=== PATIENT | male | born 1975 | race Two or more races ===

== ENCOUNTER 2020-09-12 04:57 | Emergency (ER) | payer OTHER, SELFPAY ==
--- NOTE | ~2020-09-12 | XR_ITS ---
EXAMINATION: XR SHOULDER, LEFT CLINICAL INFORMATION: Rule out dislocation COMPARISON: None TECHNIQUE: Three views of the left shoulder. FINDINGS: Left shoulder dislocation. Anterior positioning of the humeral head in relation to the glenoid. Associated Hill-Sachs deformity of the humeral head. The acromioclavicular joint is intact with mild hypertrophic degenerative change. The visualized lung is clear. XR/XR shoulder LT min 2V IMPRESSION: Anterior left shoulder dislocation.
--- NOTE | ~2020-09-12 | XR_ITS ---
EXAMINATION: XR SHOULDER, LEFT CLINICAL INFORMATION: Glenohumeral dislocation. Check placement of shoulder. COMPARISON: Prior radiographs from 09/12/2020 TECHNIQUE: Single AP view of left shoulder FINDINGS: This AP view includes the majority of the humerus in the [id number]. The humerus is internally rotated, and there appears to be Hill-Sachs deformity. The humeral head is well-positioned over the glenoid. The previously observed glenohumeral dislocation has been reduced. Alignment is normal at the acromioclavicular joint. The scapula is intact. XR/XR shoulder LT 1V IMPRESSION: There has been successful reduction of previously observed anteroinferior glenohumeral dislocation.
[2020-09-12 05:54] VITALS: PULSE 103; RESP 14; TEMP 37.2; O2SAT 95; BMI 29.5
[2020-09-12 06:00] VITALS: BP 133/89; PULSE 104; RESP 15; O2SAT 100
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
--- NOTE | 2020-09-12 06:46 | PC.NURSE ---
patient prepared for shoulder relocation. respiratory at bedside as well as MD and MD at bedside . Procedure was successful and xray to [facility] shoulder is in place
[2020-09-12] MEDS: Ketamine HCl 500 MG/5 ML VIAL 362.872 MG IM (06:57)
[2020-09-12 07:00] VITALS: BP 175/103; PULSE 130; RESP 21; O2SAT 99
[2020-09-12 07:54] VITALS: BP 140/92; PULSE 107; RESP 17; O2SAT 98
--- NOTE | 2020-09-12 07:56 | PC.NURSE ---
when asked if he is experiencing pain, pt states he doesnt feel anything in his left arm but denies pain in left arm. md hayward
== END 2020-09-12 09:05 | disposition home or self-care (01) ==
PROVIDERS: Emergency Provider Emergency Medicine
DX: S43.015A Anterior dislocation of left humerus, initial encounter (principal); Y04.2XXA Assault by strike against or bumped into by another person, initial encounter; Y93.9 Activity, unspecified; Y92.410 Unspecified street and highway as the place of occurrence of the external cause; Y99.9 Unspecified external cause status
CPT/HCPCS: 23650; 73020; 73030; 96372; 99284

== ENCOUNTER 2020-09-18 05:58 | Emergency (ER) | payer OTHER, SELFPAY ==
--- NOTE | ~2020-09-18 | XR_ITS ---
EXAMINATION: XR SHOULDER, LEFT CLINICAL INFORMATION: Shoulder pain. Evaluate for dislocation. COMPARISON: 09/12/2020 TECHNIQUE: Three views of the left shoulder. XR/XR shoulder LT min 2V FINDINGS AND IMPRESSION: There is recurrent anteroinferior dislocation at the glenohumeral joint. No evidence of osseous Bankart injury. No acute humeral fracture. Mild osteoarthritis of the acromioclavicular joint.
[2020-09-18 06:15] VITALS: BP 130/95; PULSE 110; RESP 16; TEMP 36.7; O2SAT 98; BMI 29.7
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
[2020-09-18 09:00] VITALS: BP 153/118; PULSE 104; RESP 18; TEMP 37.2; O2SAT 99
[2020-09-18] MEDS: fentaNYL citrate/PF 100 MCG/2 ML VIAL 50 MCG IVPUSH ×2 (09:01→10:29)
[2020-09-18] MEDS: propofoL 200 MG/20 ML VIAL 100 MG IVPUSH (09:05)
[2020-09-18 09:06] VITALS: BP 144/105; PULSE 105; RESP 16; O2SAT 98
[2020-09-18 09:10] VITALS: BP 151/11; PULSE 103; RESP 15
[2020-09-18 09:19] VITALS: BP 149/105; PULSE 100; RESP 16
--- NOTE | 2020-09-18 09:23 | PC.NURSE ---
Left shoulder closed reduction performed by MD. Pt recd fentanyl and propofol. Conscious sedation performed in room 19 with backup lighting system. Procedural sedation flow-sheet utilized. Pt is awake and alert and he reports that his pain is trending down.
--- NOTE | 2020-09-18 10:30 | PC.NURSE ---
Pt medicated for pain. He states that when he moves his pain is 8 and when he is resting it is a 4. He is alert and oriented at this time.
[2020-09-18 10:31] VITALS: BP 161/88; PULSE 104
== END 2020-09-18 12:18 | disposition home or self-care (01) ==
PROVIDERS: Emergency Provider Emergency Medicine Emergency Medical Services
DX: S43.015A Anterior dislocation of left humerus, initial encounter (principal); M79.602 Pain in left arm; M25.512 Pain in left shoulder; W01.0XXA Fall on same level from slipping, tripping and stumbling without subsequent striking against object, initial encounter; Y93.9 Activity, unspecified; Y92.9 Unspecified place or not applicable; Y99.9 Unspecified external cause status; Z79.899 Other long term (current) drug therapy
CPT/HCPCS: 23655; 73030; 96374; 96375; 96376; 99152; 99283; 99284; 99285; J3010

== ENCOUNTER 2024-08-25 22:43 | Emergency (ER) | payer OTHER, SELFPAY ==
[2024-08-25 22:53] VITALS: BP 130/76; BP 134/88; PULSE 114; PULSE 119; RESP 20; TEMP 36.9; O2SAT 91; O2SAT 95; BMI 29.5
--- NOTE | 2024-08-25 22:56 | ECG_ITS ---
Test Reason : JILEKCO Blood Pressure : */* mmHG Vent. Rate : 111 BPM Atrial Rate : 111 BPM P-R Int : 152 ms QRS Dur : 82 ms QT Int : 328 ms P-R-T Axes : 46 -6 6 degrees QTcB Int : 446 ms Sinus tachycardia Possible Left atrial enlargement Borderline ECG No previous ECGs available Referred By: Generic ED Physician Electronically Signed By: Augustus Griffith
[2024-08-25 23:10] LABS: MANUAL DIFF FLAG NO
[2024-08-25 23:12] LABS: Basophils Percent Auto 0.2 % (0-2); Eosinophils Percent Auto 0.2 % (0-4); Hematocrit 43.3 % (42.0-52.0); Hemoglobin 15.6 g/dl (14.0-18.0); Imm Gran Abs Auto 0.04 X10*3/uL (0.00-0.03); Imm Gran Pct Auto 0.3 % (0.0-0.4); Lymphocytes Absolute Auto 0.5 X10*3/uL (1.2-4.9); Lymphocytes Percent Auto 4.6 % (20-40); Mean Corpuscular Hemoglobin 30.5 pg (27.0-33.0); Mean Corpuscular Volume 84.7 fL (80.0-98.0); Mean Platelet Volume 10.4 fL (9.4-12.4); Monocytes Absolute Auto 1.2 X10*3/uL (0.1-1.2); Monocytes Percent Auto 10.3 % (2-11); Neutrophils Absolute Auto 9.9 x10*3/uL (2.0-8.3); Neutrophils Percent Auto 84.4 % (45-73); Platelet Count 220 X10*3/uL (160-400); Red Blood Count 5.11 X10*6/uL (4.60-5.80); Red Cell Distribution Width 11.9 % (11.0-16.0); White Blood Count 11.8 X10*3/uL (4.8-10.8)
--- NOTE | 2024-08-25 23:27 | ED.NAVMDI ---
HPI - Nausea/Vomiting/Diarrhea General Chief complaint: Nausea/Vomiting/Diarrhea Stated complaint: vomiting x 1days, diarrhea, fever Time Seen by Provider: 08/25/24 23:26 Source: patient, family and EMS Mode of arrival: EMS Limitations: language barrier ([place]-speaking product manager medical device utilized) History of Present Illness ED Provider: Belkis Garrison NP HPI Narrative: Patient is a 49-year-old male presents to EMS for evaluation. Reports at approximately 00:00 this morning he was having some stomach upset and had multiple bouts of vomiting that lasted throughout into this afternoon. Patient's is at bedside, she states that he did have a glass of wine last night and a beer, he does not typically drink but was watching some boxing bites, has consumed alcohol in the past without excessive vomiting to this extent. He was unable to tolerate some oral liquids throughout today and chicken noodle soup without difficulty. However this evening the had 3 episodes of watery diarrhea. While laying in bed tonight he was complaining of diffuse joint pains which prompted him to call for EMS transportation to the hospital. Denies hematemesis, hematochezia, melena. No fevers or chills. Denies abdominal pain. No chest pain or shortness of breath. No genitourinary symptoms. Denies any known sick contacts. Denies any history of similar symptoms in the past. Related Data Previous Rx's ?Medication ?Instructions ?Recorded ibuprofen 600 mg tablet 600 mg PO TID PRN pain #10 tabs 09/12/20 morphine 15 mg immediate release 15 mg PO Q4H PRN pain #14 tabs 09/18/20 tablet ondansetron 4 mg disintegrating 4 mg PO Q8H PRN nausea and 08/26/24 tablet vomiting #10 tabs Allergies Allergy/AdvReac Type Severity Reaction Status Date / Time No Known Allergies Allergy Verified 08/25/24 22:55 [No Known Allergies*] Review of Systems Review of Systems: Yes all other systems are reviewed and are negative PMFSH Past Medical History Attestation statement: The following information was validated with the patient. Source: old records reviewed Medical History No known health problems Surgical History No history of previous surgery Social History Social History Advance Directives: No Advance Directives Information Provided: Yes Do you have a plan to hurt others: No Plan Physical Exam Vital Signs: Vital Signs: Last Vital Signs Temp 98.5 F 08/25/24 22:53 Pulse 114 H 08/25/24 22:53 Resp 20 08/25/24 22:53 BP 134/88 08/25/24 22:53 Pulse Ox 95 08/25/24 22:53 O2 Del Method Room Air 08/25/24 22:53 BMI result Body Mass Index 29.5 Appearance: Alert.?Oriented to person, place and time. No acute distress.?Normal affect. Eyes: Pupils equal, round and reactive to light.? ENT: Pharynx normal.?? Neck: Normal inspection.? Neck supple.?? CVS: Heart sounds normal. Tachycardia.? Pulses normal.?? Respiratory: No respiratory distress.? Lung sounds clear to auscultation bilaterally?? Abdomen: Soft and non-tender. Normoactive bowel sounds. Skin: Skin warm and dry.? Normal skin color.? Extremities: No lower extremity edema.? No calf ttp? Neuro: Moves all extremities spontaneously. Sensation intact bilaterally. Ambulates with normal steady gait. Course Reevaluation(s) Reevaluation #1: Reports significant improvement in symptoms after receiving IV fluids Toradol and Zofran. Tolerating oral intake without vomiting. Myalgias have significantly improved. Suspect a viral gastroenteritis as etiology for symptoms. Feel that he is stable for discharge home, will send prescription for ondansetron. Discussed strict return precautions. All questions answered. Time: 01:26 Medications Administered Discontinued Medications Generic Name Dose Route Start Last Admin Trade Name Freq PRN Reason Stop Dose Admin Sodium Chloride 1,000 mls @ 999 mls/hr 08/25/24 23:45 08/26/24 00:18 Ns IV 08/26/24 00:45 999 mls/hr .Q1H1M AVIVA Administration Ketorolac Tromethamine 15 mg 08/25/24 23:55 08/26/24 00:18 Ketorolac Tromethamine 15 Mg/Ml Vial IVPUSH 08/25/24 23:56 15 mg ONCE ONE Administration Ondansetron HCl 4 mg 08/25/24 23:55 08/26/24 00:18 Ondansetron Hcl 4 Mg/2 Ml Vial IVPUSH 08/25/24 23:56 4 mg ONCE ONE Administration Medical Decision Making Medical Decision Making [facility] Narrative: Patient is a 49-year-old male presents emergency department for evaluation of nausea vomiting diarrhea and tactile fever with associated joint pain onset over the past 24 hours as per HPI. Overall he appears fatigued, he is mildly tachycardic warm to the touch but afebrile. He is without tachypnea or hypoxia. No hypotension. He has a benign abdominal examination. Suspect this is most likely a gastroenteritis, lower suspicion that this is secondary to his minimal alcohol consumption yesterday evening. With benign abdominal examination of the lower suspicion for acute cholecystitis, pancreatitis, diverticulitis, appendicitis, bowel obstruction. No appreciable hernia to suggest strangulation or obstruction. No endorsed genitourinary symptoms. CBC revealing a mild leukocytosis 11,800, no anemia or thrombocytopenia. No electrolyte derangement. No HAYDEE. LFTs and lipase within normal range. Viral serologies are negative. Differential Diagnosis Differential Diagnoses: The differential diagnosis associated with the presentation includes (See narrative above) Admission/Observation Consideration of admission/observation: Escalation of care including admission/observation considered (See narrative above and course narrative for further detail) Lab Data [facility] Lab Attestation statement: I reviewed the patient's lab results. (See narrative above) 08/25/24 23:05 08/25/24 23:05 Labs: Lab Results 08/25/24 Range/Units 23:05 WBC 11.8 H (4.8-10.8) X10*3/uL RBC 5.11 (4.60-5.80) X10*6/uL Hgb 15.6 (14.0-18.0) g/dl Hct 43.3 (42.0-52.0) % MCV 84.7 (80.0-98.0) fL MCH 30.5 (27.0-33.0) pg MCHC 36.0 (31.0-36.0) g/dl RDW 11.9 (11.0-16.0) % Plt Count 220 (160-400) X10*3/uL MPV 10.4 (9.4-12.4) fL Immature Gran % (Auto) 0.3 (0.0-0.4) % Neut % (Auto) 84.4 H (45-73) % Lymph % (Auto) 4.6 L (20-40) % Jones % (Auto) 10.3 (2-11) % Eos % (Auto) 0.2 (0-4) % Baso % (Auto) 0.2 (0-2) % Lymph # (Auto) 0.5 L (1.2-4.9) X10*3/uL Jones # (Auto) 1.2 (0.1-1.2) X10*3/uL Eos # (Auto) 0.0 (0.0-0.4) X10*3/uL Baso # (Auto) 0.0 (0.0-0.2) X10*3/uL Abs Immat Gran (auto) 0.04 H (0.00-0.03) X10*3/uL Absolute Neuts (auto) 9.9 H (2.0-8.3) x10*3/uL Absolute Nucleated RBC 0.000 (0.0-0.012) X10*3/uL Nucleated RBC % (auto) 0.0 (0.0-0.2) /100WBC Sodium 139 (135-145) mmol/L Potassium 3.9 (3.3-5.1) mmol/L Chloride 104 (96-108) mmol/L Carbon Dioxide 25 (22-29) mmol/L Anion Gap 14 (12-20) BUN 13 (9-16) mg/dL Creatinine 1.20 (0.5-1.4) mg/dL Estim Creat Clear Calc 81.0 Estimated GFR > 60 Random Glucose 125 H (60-115) mg/dL Calcium 9.3 (8.4-10.2) mg/dL Total Bilirubin 0.6 (0.0-1.0) mg/dL AST 34 (5-37) U/L ALT 28 (0-40) U/L Alkaline Phosphatase 115 (39-117) U/L Total Protein 8.1 H (6.5-8.0) g/dL Albumin 4.4 (3.5-5.0) g/dL Lipase 17 (8-78) U/L Influenza Type A (PCR) NEGATIVE (Negative) Influenza Type B (PCR) NEGATIVE (Negative) RSV RNA Qual (PCR) NEGATIVE (Negative) SARS-CoV-2 RNA (RT-PCR) NEGATIVE (Negative) Independent Interpretation I performed an independent interpretation of an: EKG (Sinus tachycardia with ventricular rate of 111, QTC 446, no ST elevation, no ST depression) Independent Historian Clinical information obtained from an independent historian. History obtained from or confirmed by: Spouse and EMS External Record Review External record reviewed: Outpatient record Discharge Plan Discharge Clinical Impression: Gastroenteritis Patient Disposition: Home, Self-Care Instructions: Gastroenteritis (ED) Additional Instructions: Be sure that you are staying well hydrated, consuming small frequent meals. Prentiss diet over the next 2 days. Introduce a bland diet including crackers, bananas, rice, soup, toast, and boiled vegetables. This may progress to plain baked or boiled chicken or turkey. Avoid dairy products or foods high in fat or grease. He has Zofran as needed for nausea/vomiting. You can take ibuprofen 200 mg, 3 tablets (600mg) every 6-8 hours as needed for pain, in addition to Tylenol 500 mg, 2 tablets (1,000mg) every 4-6 hours as needed for pain, but not to exceed 3 doses daily (3,000mg).? Return to emergency department any new or worsening symptoms or concerns Prescriptions: New ondansetron 4 mg tablet,disintegrating 4 mg PO Q8H PRN (Reason: nausea and vomiting) Qty: 10 0RF No Action ibuprofen 600 mg tablet 600 mg PO TID PRN (Reason: pain) Qty: 10 0RF morphine 15 mg tablet 15 mg PO Q4H PRN (Reason: pain) Qty: 14 0RF Referrals: Mirza Harry MD [Primary Care Provider] - Print Language: [place]
[2024-08-25 23:28] LABS: Alanine Aminotransferase 28 U/L (0-40); Albumin Level 4.4 g/dL (3.5-5.0); Alkaline Phosphatase 115 U/L (39-117); Anion Gap 14 (12-20); Aspartate Amino Transferase 34 U/L (5-37); Bilirubin Total 0.6 mg/dL (0.0-1.0); Blood Urea Nitrogen 13 mg/dL (9-16); Calcium 9.3 mg/dL (8.4-10.2); Carbon Dioxide 25 mmol/L (22-29); Chloride 104 mmol/L (96-108); Estimated Glomerular Filt Rate > 60; Glucose Random 125 mg/dL (60-115); Lipase 17 U/L (8-78); Potassium 3.9 mmol/L (3.3-5.1); Sodium 139 mmol/L (135-145); Total Protein 8.1 g/dL (6.5-8.0)
[2024-08-25 23:48] LABS: Influenza A PCR NEGATIVE (Negative); Influenza B PCR NEGATIVE (Negative); Resp Syncy Virus RNA Qual PCR NEGATIVE (Negative); SARS COV2 PCR INHOUSE NEGATIVE (Negative)
[2024-08-26] MEDS: Ketorolac Tromethamine 15 MG/ML VIAL IVPUSH (00:18)
[2024-08-26] MEDS: ondansetron HCL 4 MG/2 ML VIAL IVPUSH (00:18)
[2024-08-26] MEDS: 0.9 % Sodium Chloride 1,000 ML 999 ML IV (00:18)
[2024-08-26 02:18] VITALS: BP 133/83; PULSE 106; RESP 18; TEMP 36.9; O2SAT 94
[2024-08-26 02:30] VITALS: BP 133/83; PULSE 106; RESP 18; TEMP 36.9; O2SAT 94
== END 2024-08-26 02:31 | disposition home or self-care (01) ==
PROVIDERS: Emergency Provider Emergency Medicine Emergency Medical Services; PCP Family Medicine
DX: K52.9 Noninfective gastroenteritis and colitis, unspecified (principal); R11.2 Nausea with vomiting, unspecified; R00.0 Tachycardia, unspecified; Z03.818 Encounter for observation for suspected exposure to other biological agents ruled out; Z79.899 Other long term (current) drug therapy
CPT/HCPCS: 0241U; 36415; 80053; 83690; 85025; 93005; 96361; 96374; 96375; 99284; 99285; J1885; J2405